=== PATIENT | female | born 1975 | race Caucasian/White ===

== ENCOUNTER → 2018-04-16 | Outpatient (CLI) | payer BC ==
--- NOTE | 2018-04-16 10:48 | CARD ---
MR#: [id number] Date of Study: 04/16/2018 Ordering Physician: DISHA MASSEY, Referring Physician: DISHA MASSEY, Tech: Meagan Flood [facility] APPROVED REPORT EXAM: Two-dimensional and M-mode echocardiogram with Doppler and color Doppler. Other Information Quality : AverageHR: 80bpm Rhythm : NSR INDICATION Palpitations 2D DIMENSIONS RVDd2.3 (2.9-3.5cm)Left Atrium(2D)2.8 (1.6-4.0cm) IVSd0.8 (0.7-1.1cm)Aortic Root(2D)2.3 (2.0-3.7cm) LVDd3.7 (3.9-5.9cm)LVOT Diameter1.9 (1.8-2.4cm) PWd1.0 (0.7-1.1cm)LVDs2.0 (2.5-4.0cm) FS (%) 46.9 %SV47.3 ml M-Mode DIMENSIONS Left Atrium(MM)3.16 (2.5-4.0cm)Aortic Root2.37 (2.2-3.7cm) Aortic Valve AoV Peak José.128.9cm/sAoV VTI23.0cm AO Peak GR.6.7mmHgLVOT Peak José.84.7cm/s AO Mean GR.4mmHgAVA (VMAX)1.92cm2 SHANIKA (VTI)2.00cm2 Mitral Valve MV E Setehdmn71.2cm/sMV E Peak Gr.2mmHg MV DECEL [id number] A Awebpnwz34.9cm/s MV E Mean Gr.1mmHgE/A Ratio0.9 MV A Iwtwngch19ge Pulmonary Valve PV Peak Izhwvwfk02.3cm/s Pulmonary Vein S1 Oafrwbmt91.0cm/sD2 Refudaqy97.0cm/s PVa [id number] LEFT VENTRICLE The left ventricle is normal size. There is normal left ventricular wall thickness. The left ventricu lar systolic function is normal and the ejection fraction is within normal range. The Ejection Fracti on is 60-65%. There is normal LV segmental wall motion. Transmitral Doppler flow pattern is Grade I-a bnormal relaxation pattern. RIGHT VENTRICLE The right ventricle is normal size. There is normal right ventricular wall thickness. The right ventr icular systolic function is normal. ATRIA The left atrium size is normal. The right atrium size is normal. The interatrial septum is intact wit h no evidence for an atrial septal defect or patent foramen ovale as noted on 2-D or Doppler imaging. AORTIC VALVE The aortic valve is normal in structure and function. The aortic valve is trileaflet. Doppler and Col or Flow revealed no significant aortic regurgitation. There is no significant aortic valvular stenosi s. MITRAL VALVE The mitral valve is normal in structure and function. There is no evidence of mitral valve prolapse. There is no mitral valve stenosis. Doppler and Color Flow revealed no mitral valve regurgitation note d. TRICUSPID VALVE The tricuspid valve is normal in structure and function. Doppler and Color Flow revealed trace tricus pid regurgitation. There is no tricuspid valve prolapse or vegetation. There is no tricuspid valve st enosis. PULMONIC VALVE The pulmonary valve is normal in structure and function. Doppler and Color Flow revealed no pulmonic valvular regurgitation. There is no pulmonic valvular stenosis. GREAT VESSELS The aortic root is normal in size. The ascending aorta is normal in size. PERICARDIAL EFFUSION There is no evidence of significant pericardial effusion. Critical Notification Critical Value: No <Conclusion> The left ventricle is normal size. The left ventricular systolic function is normal and the ejection fraction is within normal range. The Ejection Fraction is 60-65%. There is no significant aortic valvular stenosis. Doppler and Color Flow revealed no significant aortic regurgitation. Doppler and Color Flow revealed no mitral valve regurgitation noted. Doppler and Color Flow revealed trace tricuspid regurgitation. Signed by : Disha Massey MD Electronically Approved : 04/16/2018 10:47:39
== END | disposition home or self-care (01) ==
LOC: ECHO 09:55
PROVIDERS: ATTEND Internal Medicine Cardiovascular Disease
DX: R00.2 Palpitations (principal); R42 Dizziness and giddiness
CPT/HCPCS: 93306

== ENCOUNTER → 2018-11-30 | Outpatient (CLI) | payer OTHER ==
--- NOTE | 2018-11-30 16:34 | CARD ---
MR#: [id number] Date of Study: 11/30/2018 Ordering Physician: DISHA JACOME, Referring Physician: DISHA JACOME, Tech: Meagan Anthony RDCS APPROVED REPORT INDICATION Chest Pain RISK FACTORS Hypertension Obesity Family History Reason : Patient complained of pain PROCEDURE The patient underwent an Exercise Stress Test using the Jovan Protocol. Blood pressure, heart rate, a nd EKG were monitored. An Echocardiogram was performed by veterinary laboratory technician in four stages in quad fashion. At peak stress four se lected images were obtained and placed side by side with resting images for comparison. STRESS ECHO FINDINGS The resting Echocardiogram showed normal left ventricular systolic contractility with an estimated Ej ection Fraction of about 60 %. The Resting Echocardiogram showed normal augmentation of myocardial wall segments using a 16 segment model. The Stress Echocardiogram showed normal augmentation of myocardial wall segments using a 16 segment m robles. The Stress Echocardiogram left ventricular systolic contractility has an estimated Ejection Fraction of about 70%. Test Type: Exercise Stress Nurse/Tech: Karie Vasquez RN Test Indications: Chest Pain Cardiac History and Allergies: See SubC Control EMR Medications: See EMR Medical History: See EMR Resting ECG: SR Resting Heart Rate: 80 bpm Resting Blood Pressure: 106/57mmHg Pretest Chest Pain: None Nurse/Tech Notes S1S2, Lungs CTA Stress Symptoms Fatigue, chest tightness POST EXERCISE Reason for Termination: Reached target heart rate Target HR: Yes Max HR: 180 bpm 101% of Maximum Predicted HR: 178 bpm Exercise duration: 7:03 min:sec, 3 Stage Exercise capacity: 10.1METs Max Blood Pressure: 149/55mmHg Blood Pressure response to exercise: Normal blood pressure response during stress. Heart Rate response to exercise: Normal Chest Pain: No. Chest tightness at the end of exercise with fatigue and the tightness stopped in martir very. Arrhythmia: No. ST Change: No. STRESS ECG Stress EKG shows no significant changes. Preliminary Notification Critical Value: No <Conclusion> Normal resting and stress EKG. No acute ischemic findings Average exercise capacity at 10.1 METs Normal blood pressure and heart rate response. Normal resting ejection fraction and wall motion. EF 55% Normal stress wall motion and ejection fraction. EF 70%. Low risk study Signed by : Aristides Romeo, Electronically Approved : 11/30/2018 16:33:50
== END | disposition home or self-care (01) ==
LOC: ECHO 12:52
PROVIDERS: ATTEND Internal Medicine Cardiovascular Disease
DX: R07.89 Other chest pain (principal); I10 Essential (primary) hypertension; E66.9 Obesity, unspecified
CPT/HCPCS: 93017; 93350